=== PATIENT | male | born 1995 | race Hispanic/Latino ===

== ENCOUNTER 2020-10-12 | Emergency (ER) | payer SELFPAY ==
[2020-10-12] MEDS ORDERED: CORTISPORIN OTI10 M2 AD (03:22)
[2020-10-12] MEDS ORDERED: CIPROFLOXACN500 MG PO (03:22)
== END 2020-10-12 03:51 | disposition home or self-care (01) | DRG 156 ==
DX: H60.91 Unspecified otitis externa, right ear (principal)

== ENCOUNTER 2021-07-24 21:13 | Emergency (ER) | payer SELFPAY ==
[~2021-07-24] VITALS: Ht 167.6 cm; Wt 82.0 kg
[~2021-07-24 21:13] MED LIST: CIPROFLOXACN500 MG PO; CORTISPORIN OTI10 M2 AD
[2021-07-25] MEDS ORDERED: AMOXICILLIN250 M1 PO (00:08)
[2021-07-25] MEDS ORDERED: NEOMYCIN EAR (00:09)
[2021-07-25] MEDS ORDERED: TAM75CAP PO (00:52)
[2021-07-25] MEDS ORDERED: LORTAB 1010 MG PO (00:52)
[2021-07-25] MEDS ORDERED: FLOXIN OTIC0.3 % AS (00:52)
[2021-07-25 01:35] VITALS: BP 122/88
== END 2021-07-25 01:35 | disposition home or self-care (01) | DRG 153 ==
LOC: ED 21:13
DX: J11.1 Influenza due to unidentified influenza virus with other respiratory manifestations (principal); H60.92 Unspecified otitis externa, left ear; Z20.822 Contact with and (suspected) exposure to COVID-19